=== PATIENT | female | born 1945 | race Hispanic/Latino ===

== ENCOUNTER → 2017-09-23 | Outpatient (CLI) | payer MEDICARE | END | disposition home or self-care (01) | LOC: RAH 12:02 | PROVIDERS: ATTEND Internal Medicine | DX: M47.896 Other spondylosis, lumbar region (principal); M48.061 Spinal stenosis, lumbar region without neurogenic claudication; M51.26 Other intervertebral disc displacement, lumbar region; M51.36 Other intervertebral disc degeneration, lumbar region; K45.8 Other specified abdominal hernia without obstruction or gangrene | CPT/HCPCS: 72148 ==

== ENCOUNTER → 2020-03-19 | Outpatient (CLI) | payer MEDICARE | END | disposition home or self-care (01) | LOC: RAH 10:57 | PROVIDERS: ATTEND Anesthesiology Pain Medicine | DX: M47.27 Other spondylosis with radiculopathy, lumbosacral region (principal); M48.07 Spinal stenosis, lumbosacral region | CPT/HCPCS: 72148 ==

== ENCOUNTER 2022-10-23 22:57 | Emergency (ER) | payer MEDICARE ==
[~2022-10-23] VITALS: Ht 165.1 cm; Wt 86.2 kg
[2022-10-23 23:38] LABS: BASOPHILS % (AUTO) 0.6 % (0.0-5.0); EOSINOPHILS % (AUTO) 1.4 % (0.0-8.0); HEMATOCRIT 31.4 % (36-48); LYMPHOCYTES % (AUTO) 19.3 % (21.0-51.0); MEAN CORPUSCULAR HEMOGLOBIN 24.4 pg (27.0-33.0); MEAN CORPUSCULAR HGB CONC 30.6 g/dL (32.0-36.0); MEAN CORPUSCULAR VOLUME 79.9 fL (79-99); MONOCYTES % (AUTO) 8.4 % (3.0-13.0); NEUTROPHILS % (AUTO) 69.8 % (40.0-77.0); PLATELET COUNT (AUTO) 214 K/uL (130-400); RED BLOOD CELL COUNT(AUTO) 3.93 MIL/uL (4.00-5.50); RED CELL DISTRIBUTION WIDTH 17.7 % (11.0-15.5); WHITE BLOOD COUNT (AUTO) 7.8 K/uL (4.8-10.8)
[2022-10-23 23:57] LABS: ALBUMIN 3.3 g/dL (3.5-5.0); CREATININE 1.2 mg/dL (0.5-1.5); POTASSIUM 3.2 mmol/L (3.5-5.1); TOTAL PROTEIN, SERUM 6.9 g/dL (6.0-8.3)
[2022-10-24] MEDS ORDERED: LACTATED RINGERS 1000ML 1,000 ML IV ONE (00:30)
[2022-10-24] MEDS ORDERED: FAMOTIDINE 20MG VIAL IV ONE (00:30)
[2022-10-24] MEDS ORDERED: POLY17PO4 PO (01:50)
[2022-10-24] MEDS ORDERED: FERR-72 PO (01:50)
[2022-10-24 02:14] VITALS: BP 140/59
== END 2022-10-24 02:16 | disposition home or self-care (01) ==
LOC: EDH 22:57
DX: E87.6 Hypokalemia (principal); E86.0 Dehydration; D64.9 Anemia, unspecified; R78.0 Finding of alcohol in blood; I10 Essential (primary) hypertension; F32.A Depression, unspecified; Z88.5 Allergy status to narcotic agent
CPT/HCPCS: 99285; 71045; 84484; 80053; 85025; 36415; 93005; 96374; 96361; J7120; J3490

== ENCOUNTER 2023-01-26 18:44 | Inpatient (IN) | payer MEDICARE ==
[~2023-01-26] VITALS: Ht 165.1 cm; Wt 83.6 kg
[~2023-01-26 18:44] MED LIST: FERR-72 PO; POLY17PO4 PO
[2023-01-26] MEDS ORDERED: 0.9%NACL 1000ML 1,000 ML IV ONE (20:30)
[2023-01-26] MEDS ORDERED: ONDANSETRON 4MG INJ IVP ONE (20:30)
[2023-01-26 20:43] LABS: BASOPHILS # (AUTO) 0.07 K/uL (0.00-0.20); BASOPHILS % (AUTO) 0.3 % (0.0-5.0); EOSINOPHILS # (AUTO) 0.03 K/uL (0.00-0.70); EOSINOPHILS % (AUTO) 0.1 % (0.0-8.0); HEMATOCRIT 35.6 % (36-48); IMMATURE GRANULOCYTE ABSOLUTE 0.21 K/uL (0-1); LYMPHOCYTES # (AUTO) 1.1 K/uL (1.0-4.8); LYMPHOCYTES % (AUTO) 5.5 % (21.0-51.0); MEAN CORPUSCULAR HEMOGLOBIN 24.2 pg (27.0-33.0); MEAN CORPUSCULAR HGB CONC 30.9 g/dL (32.0-36.0); MEAN CORPUSCULAR VOLUME 78.2 fL (79-99); MONOCYTES # (AUTO) 1.3 K/uL (0.1-1.0); MONOCYTES % (AUTO) 6.5 % (3.0-13.0); NEUTROPHILS # (AUTO) 17.4 K/uL (1.8-7.7); NEUTROPHILS % (AUTO) 86.6 % (40.0-77.0); PLATELET COUNT (AUTO) 286 K/uL (130-400); RED BLOOD CELL COUNT(AUTO) 4.55 MIL/uL (4.00-5.50); RED CELL DISTRIBUTION WIDTH 16.2 % (11.0-15.5); WHITE BLOOD COUNT (AUTO) 20.2 K/uL (4.8-10.8)
[2023-01-26 20:51] LABS: INR 1.03 (0.85-1.15); PROTHROMBIN TIME 11.9 SEC (9.6-11.6)
[2023-01-26 20:57] LABS: CREATININE 1.4 mg/dL (0.5-1.5); POTASSIUM 3.5 mmol/L (3.5-5.1)
[2023-01-26 21:02] LABS: ALBUMIN 2.8 g/dL (3.5-5.0); BILIRUBIN,TOTAL 0.8 mg/dL (0.2-1.0); TOTAL PROTEIN, SERUM 7.3 g/dL (6.0-8.3)
[2023-01-26] MEDS ORDERED: ASPIRIN 325MG TAB PO ONE (21:30)
[2023-01-26] MEDS ORDERED: CEFTRIAXONE 2GM VIAL IVPB ONE (21:30)
[2023-01-26] MEDS ORDERED: 0.9%NACL 1000ML 1,000 ML IV SCH (22:30)
[2023-01-26] MEDS ORDERED: CEFTRIAXONE 1G VIAL IVPB SCH (22:30)
[2023-01-26] MEDS ORDERED: POTASSIUM CHLORIDE 10% ELIXIR 20 MEQ/15 ML UDCUP PO PRN (22:30)
[2023-01-26] MEDS ORDERED: POTASSIUM CHLORIDE 20MEQ/100ML 100 ML IV PRN ×2 (22:30)
[2023-01-26] MEDS ORDERED: ACETAMINOPHEN 325 MG TAB PO PRN ×2 (22:30)
[2023-01-26] MEDS ORDERED: KCL 20 MEQ ERTAB PO PRN (22:30)
[2023-01-26] MEDS ORDERED: ONDANSETRON 4MG INJ IVP PRN (22:30)
[2023-01-27] VITALS (35 sets, daily range): BP systolic 77–138; BP diastolic 34–103; PULSE 53–117; RESP 15–148; O2SAT 98
[2023-01-27 05:35] LABS: HEMATOCRIT 31.6 % (36-48); MEAN CORPUSCULAR HEMOGLOBIN 24.9 pg (27.0-33.0); MEAN CORPUSCULAR HGB CONC 31.6 g/dL (32.0-36.0); MEAN CORPUSCULAR VOLUME 78.8 fL (79-99); RED BLOOD CELL COUNT(AUTO) 4.01 MIL/uL (4.00-5.50); RED CELL DISTRIBUTION WIDTH 16.3 % (11.0-15.5); WHITE BLOOD COUNT (AUTO) 14.6 K/uL (4.8-10.8)
[2023-01-27 05:58] LABS: CREATININE 1.7 mg/dL (0.5-1.5)
[2023-01-27] MEDS ORDERED: SERT100T PO (08:00)
[2023-01-27] MEDS ORDERED: TRIA1TAB3 PO (08:00)
[2023-01-27] MEDS ORDERED: LISI10TA24 PO (08:00)
[2023-01-27] MEDS ORDERED: ESOM40CA54 PO (08:00)
[2023-01-27] MEDS ORDERED: PROP40TA7 PO (08:00)
[2023-01-27] MEDS ORDERED: GUAIFENESIN-DM 200/20 MG 10 ML PO PRN (09:00)
[2023-01-27] MEDS ORDERED: ACETAMINOPHEN 325 MG TAB PO PRN ×2 (09:00)
[2023-01-27] MEDS ORDERED: 0.9%NACL 50ML IV SCH (09:00)
[2023-01-27] MEDS ORDERED: LACTULOSE 20 GM/30 ML UDCUP PO PRN (09:00)
[2023-01-27] MEDS ORDERED: ZOSYN 3.375GM +NS 50ML IVPB SCH (09:00)
[2023-01-27] MEDS ORDERED: MAG/ALUM/SIMETH 30 ML UDCUP PO PRN (09:00)
[2023-01-27] MEDS ORDERED: PANTOPRAZOLE 40 MG TAB DR PO SCH (09:30)
[2023-01-27] MEDS ORDERED: DEXTROSE 50%-WATER 50 ML DISP.SYRIN IV PRN (09:30)
[2023-01-27] MEDS ORDERED: MAGNESIUM 2GM PREMIX 50ML 50 ML IV PRN (09:30)
[2023-01-27] MEDS ORDERED: GLUCAGON 1MG KIT 1 MG ML IM PRN (09:30)
[2023-01-27] MEDS ORDERED: NOREPINEPHRIN 4MG/NS 250ML 250 ML IV SCH (10:00)
[2023-01-27] MEDS ORDERED: ALBUMIN (HUMAN) 25% 50 ML IV ONE ×2 (12:00)
[2023-01-27] MEDS ORDERED: HEPARIN 10,000 UNIT/10ML (1,000 UNIT/ML) VIAL IV ONE (16:00)
[2023-01-27] MEDS ORDERED: 0.9%NACL 1000ML 1,000 ML IV SCH (16:00)
[2023-01-27] MEDS ORDERED: HEPARIN 25,000 UNITS/250ML D5W 250 ML IV SCH (16:00)
[2023-01-27] MEDS ORDERED: SODIUM BICARB 50MEQ 50ML VIAL 50 ML ONE (16:39)
[2023-01-28] MEDS ORDERED: NON-FORMULARY MEDICATION 1 EACH (Sertraline HCl (Zoloft) 100 MG) PO SCH (08:00)
[2023-01-28] MEDS ORDERED: SERTRALINE HCL 50 MG TABLET PO SCH (08:00)
[2023-01-28] MEDS ORDERED: PANTOPRAZOLE 40 MG/VIAL IVP SCH (09:00)
[2023-01-28] MEDS ORDERED: ASPIRIN 81 MG EC TAB PO SCH (09:00)
== END 2023-01-27 16:41 | DRG 871 ==
LOC: EDH 18:44 → EDHIP 22:12 → OBSVTOIN 22:12 → 4AH 23:56 → 2CH 01-27 08:42
PROVIDERS: ADMIT Internal Medicine; ATTEND Internal Medicine
DX: A41.9 Sepsis, unspecified organism (principal); I26.99 Other pulmonary embolism without acute cor pulmonale; E87.1 Hypo-osmolality and hyponatremia; F32.1 Major depressive disorder, single episode, moderate; I24.89 Other forms of acute ischemic heart disease; I82.402 Acute embolism and thrombosis of unspecified deep veins of left lower extremity; N17.9 Acute kidney failure, unspecified; D50.9 Iron deficiency anemia, unspecified; E78.2 Mixed hyperlipidemia; I12.9 Hypertensive chronic kidney disease with stage 1 through stage 4 chronic kidney disease, or unspecified chronic kidney disease; J44.9 Chronic obstructive pulmonary disease, unspecified; K21.9 Gastro-esophageal reflux disease without esophagitis; N18.30 Chronic kidney disease, stage 3 unspecified; Z96.643 Presence of artificial hip joint, bilateral; G89.29 Other chronic pain; Z60.2 Problems related to living alone; Z88.5 Allergy status to narcotic agent; Z79.899 Other long term (current) drug therapy
CPT/HCPCS: 31500; 36415; 71045; 78582; 80048; 80053; 82550; 83605; 83874; 83880; 84484; 85025; 85027; 85378; 85610; 85730; 87040; 92950; 93005; 93306; 93970; 96361; 96365; 96375; A9540; A9558; G0378; J0696; J1644; J2405; J2543; J3490; J7030; P9047